=== PATIENT | male | born 2000 | race Caucasian/White ===

== ENCOUNTER 2020-11-02 11:24 | Outpatient (CLI) | payer SELFPAY ==
[2020-11-02 12:14] LABS: SARS-CoV-2 Ag Negative (Negative)
[2020-11-02 22:05] LABS: SARS-CoV-2 RNA PCR Negative
== END 2020-11-02 11:25 | disposition home or self-care (01) ==
LOC: CHSLAB 11:28
PROVIDERS: PCP Family Medicine; Visit Provider Family Medicine
DX: R53.81 Other malaise (principal); Z20.822 Contact with and (suspected) exposure to COVID-19
CPT/HCPCS: 87426; C9803; U0003; U0005

== ENCOUNTER 2020-11-05 10:43 | Outpatient (CLI) | payer SELFPAY ==
--- NOTE | ~2020-11-05 | XR_ITS ---
EXAMINATION: XR chest 2V DATE: 11/05/2020 11:12 INDICATION: Chest pain. Shortness of breath. Abdominal pain. TECHNIQUE: Frontal and lateral views of the chest were obtained. COMPARISON: Chest 2 views 12/04/2013, CT abdomen and pelvis 11/11/2018 FINDINGS: The chest demonstrates clear lungs without pneumonia, pleural effusion, or pneumothorax. Th e heart size is normal. IMPRESSION: 1. No acute cardiopulmonary disease. Reviewed, dictated and finalized at location A. HOUSE WORKER
--- NOTE | ~2020-11-05 | XR_ITS ---
EXAMINATION: XR abdomen obstructive series EXAM DATE: 11/05/2020 11:12 INDICATION: Abdominal pain, chest pain and shortness of breath 1.5 weeks. TECHNIQUE: Frontal upright projection of the upper abdomen, frontal projection of the lower abdomen f or interpretation. There is no prior study for comparison. FINDINGS: There is moderate amount of colonic stool and gas. No small bowel dilation, nonobstructiv e bowel gas pattern. There are no suspicious calcifications identified. There is no organomegaly suspected. The bones are unremarkable. There is no free intraperitoneal air. The lung bases are clear. IMPRESSION: Moderate amount of colonic stool. Reviewed, dictated and finalized at location A. T WORKER
[2020-11-05 10:57] LABS: Add Urine Microscopic? NO; Appearance Urine Clear (Clear); Basophils Absolute Auto 0.04 K/mm3 (0.00-0.10); Basophils Percent Auto 0.5 % (0.0-1.0); Bilirubin Urine Negative (Negative); Blood Urine Negative (Negative); Color Urine Yellow (Yellow); Eosinophils Absolute Auto 0.28 K/mm3 (0.02-0.50); Eosinophils Percent Auto 3.4 % (1.0-6.0); Glucose Urine UA Negative (Negative); Hemoglobin 15.4 g/dL (14.0-18.0); Immature Granulocyte Percent A 1.2 % (0.0-0.0); Ketones Urine Negative (Negative); Leukocyte Esterase Ur Negative (Negative); Lymphocytes Absolute Auto 3.13 K/mm3 (1.10-4.50); Lymphocytes Percent Auto 37.7 % (18.0-42.0); Mean Corpuscular HGB Conc 32.8 g/dL (32.0-36.0); Mean Corpuscular Hemoglobin 28.1 pg (27.0-31.0); Mean Corpuscular Volume 85.6 fL (78.0-102.0); Mean Platelet Volume 9.6 fl (8.7-11.0); Monocytes Absolute Auto 0.49 K/mm3 (0.10-0.90); Monocytes Percent Auto 5.9 % (2.0-11.0); Neutrophils Absolute Auto 4.3 K/mm3 (1.7-7.2); Neutrophils Percent Auto 51.3 % (50.0-70.0); Nitrate Urine Negative (Negative); Platelet Count Result 288 K/mm3 (150-420); Protein Urine Negative (Negative); Red Blood Count 5.49 M/mm3 (4.70-6.10); Red Cell Distribution Width 11.9 % (11.6-14.4); Specific Grav Ur >= 1.030 (1.010-1.020); Urobilinogen Urine 0.2 mg/dL (0.2-1.0); White Blood Count 8.3 K/mm3 (4.8-10.8)
[2020-11-05 12:25] LABS: Alanine Aminotransferase 20 U/L (16-63); Albumin Level 4.9 g/dL (3.4-5.0); Alkaline Phosphatase 81 U/L (46-116); Amylase 86 U/L (25-115); Anion Gap 10 mmol/L (8-16); Aspartate Amino Transferase 10 U/L (15-37); Bilirubin,Total 0.6 mg/dL (0.00-1.00); Blood Urea Nitrogen 20 mg/dL (7-18); Calcium 9.8 mg/dL (8.5-10.1); Carbon Dioxide 29 mmol/L (21-32); Chloride 102 mmol/L (98-108); Estimated Glomerular Filt Rate > 60; Glucose 92 mg/dL (70-99); Lipase 97 U/L (73-393); Osmolality Calculated 294 mOsm/kg (285-295); Potassium 4.5 mmol/L (3.5-5.1); Sodium 141 mmol/L (136-145); Total Protein 7.7 g/dL (6.4-8.2)
== END 2020-11-05 10:44 | disposition home or self-care (01) ==
PROVIDERS: PCP Family Medicine; Visit Provider Family Medicine
DX: R10.9 Unspecified abdominal pain (principal); R06.02 Shortness of breath
CPT/HCPCS: 36415; 71046; 74019; 80053; 81003; 82150; 83690; 85025

== ENCOUNTER 2021-04-02 21:57 | Emergency (ER) | payer OTHER, SELFPAY ==
[2021-04-02 22:00] VITALS: BP 127/91; PULSE 63; RESP 16; TEMP 37.2; O2SAT 100
--- NOTE | 2021-04-02 22:01 | ED.EYEPROB ---
HPI - Eye Problem General Chief complaint: Eye Problems Stated complaint: trouble seeing in L eye Source: patient and RN notes reviewed Mode of arrival: ambulatory Limitations: no limitations History of Present Illness HPI Narrative: 20-year-old male states that he was at home when he woke up from sleep has left eye had change in vision. Almost like someone dropped a piece of plastic over his eye and made at blurry. This has been going on all day without change. He denies any injury. He denies any drainage, foreign body sensation, matting, or pain. He denies any head injury. chief complaint: vision change Onset (ago): hour(s) (12) Duration: constant Location: left eye Eye Symptoms: decreased vision and blurry vision Place: home Mechanism: none Associated symptoms: none Treatments Prior to Arrival: none Related Data Patient tetanus UTD: Yes Home Medications Medication Instructions Recorded Confirmed No Home Medications 04/02/21 04/02/21 Allergies Allergy/AdvReac Type Severity Reaction Status Date / Time No Known Allergies Allergy Verified 04/02/21 22:07 Review of Systems Review of Systems: All systems reviewed & are unremarkable except as noted in HPI and below Constitutional: Constitutional: Denies chills and Denies fever(s) ENT: Reports otalgia (left) Neurologic: Denies confusion, Denies dizziness, Denies headache(s) and Denies weakness PMFSH Past Medical History Medical History (Updated 04/02/21 @ 23:07 by Walker Ledezma MD) No active medical problems Surgical History Surgical History (Updated 04/02/21 @ 22:09 by Walker Ledezma MD) No pertinent past surgical history Social History Social History (Updated 04/02/21 @ 22:10 by Walker Ledezma MD) Smoking status: Current every day smoker Tobacco type: e-cigarettes/vaping Alcohol intake: current Substance use: never Exam Const: General: healthy appearing and no acute distress Nutritional Appearance: well nourished and thin Orientation/consciousness: patient oriented x3 HENMT: Head: normal to inspection Ears: external ears normal Face and sinus: normal facial exam Mouth: Yes moist mucous membranes Eyes: Direct Ophthalmoscopy: normal light reflex, no papilledema, No fundi normal bilaterally, No macular abnormality, No optic disc abnormality and No retinal abnormality ( No obvious abnormality could be appreciated.) Neck: Neck: normal visual inspection Resp: Effort & Inspection: normal respiratory effort Auscultation: clear to auscultation bilaterally Cardio: Rate: regular rate Rhythm: regular rhythm GI: Auscultation: normal bowel sounds Back/Spine/Pelvis: Cervical Spine: cervical ROM normal Thoracic/Lumbar Spine: thoraco-lumbar ROM normal Skin: General skin exam: normal color Rashes: no rashes Neuro: General: patient oriented x3, moves all extremities, no meningeal signs and no focal motor deficits Speech: normal speech Gait exam (Neuro): Normal gait present Extrem: General: normal to inspection and no clubbing, cyanosis or edema Psych: Appearance: grossly normal and well kempt Mental Status: mental status grossly normal Affect: normal affect Attitude: cooperative Thought content: Yes Normal thought content present Course Course Emergency Course: I discussed him going to [facility] for further evaluation in the emergency room tonight for ophthalmology examination and treatment of his visual changes in his left eye. They declined to go this evening. They said they would possibly go to more. They opted to be discharged home. Procedures Other Procedure Procedure 1: Other Procedure: Left eye, 2 drops of atropine 1% ophthalmic placed in left eye for dilation. Ophthalmoscope examination did not reveal any significant abnormalities but does not rule out serious diagnosis such as detached retina. Discharge Plan Discharge Clinical Impression: Vision changes Patient Dispositio
[2021-04-02 23:14] VITALS: BP 117/85; PULSE 58; RESP 15; O2SAT 100
== END 2021-04-02 23:13 | disposition left against medical advice (07) ==
PROVIDERS: Emergency Provider Emergency Medicine; PCP Family Medicine
DX: H53.9 Unspecified visual disturbance (principal)
CPT/HCPCS: 99282; A9270

== ENCOUNTER 2021-04-14 09:33 | Outpatient (CLI) | payer OTHER, SELFPAY ==
--- NOTE | ~2021-04-14 | MR_ITS ---
EXAMINATION: MR brain/brain stem wo/w con DATE: 04/14/2021 11:58 INDICATION: Left sided vision and hearing loss. TECHNIQUE: Magnetic resonance imaging (MRI) of the brain and brainstem was performed without and with 12 mL MultiHance intravenous contrast. Sequences included sagittal and axial T1-weighted FSE, axial diffusion-weighted FS EPI, axial T2*-weighted GRE, axial T2-weighted FLAIR Propeller, and axial T2-we ighted Propeller. Postcontrast sequences included axial and coronal T1-weighted FSE. Apparent diffusi on coefficient (ADC) maps were created. COMPARISON: None. FINDINGS: There is no intracranial hemorrhage, acute infarction, or abnormal intracranial mass lesion . The ventricles are normal in size. The paranasal sinuses are clear. The orbits are normal. The mast oid air cells are normal. IMPRESSION: 1. Normal brain. Reviewed, dictated and finalized at location A. IMPRESSION: 1. Normal brain.
== END 2021-04-14 09:34 | disposition home or self-care (01) ==
LOC: CHSIMG 09:34
PROVIDERS: PCP Family Medicine; Visit Provider Family Medicine
DX: H53.8 Other visual disturbances (principal)
CPT/HCPCS: 70553; A9577

== ENCOUNTER 2021-05-28 09:49 | Outpatient (CLI) | payer OTHER, SELFPAY ==
[2021-05-28 11:16] LABS: SARS-CoV-2 RNA PCR Negative (Negative)
== END 2021-05-28 09:50 | disposition home or self-care (01) ==
LOC: CHSLAB 09:51
PROVIDERS: PCP Family Medicine; Visit Provider Family Medicine
DX: J00 Acute nasopharyngitis [common cold] (principal); Z20.822 Contact with and (suspected) exposure to COVID-19
CPT/HCPCS: C9803; U0003; U0005

== ENCOUNTER 2021-06-21 16:26 | Outpatient (CLI) | payer OTHER, SELFPAY ==
[2021-06-21 17:34] LABS: SARS-CoV-2 RNA PCR Positive (Negative)
== END 2021-06-21 16:27 | disposition home or self-care (01) ==
LOC: CHSLAB 16:27
PROVIDERS: PCP Family Medicine; Visit Provider Family Medicine
DX: U07.1 COVID-19 (principal)
CPT/HCPCS: 87081; 87880; C9803; U0003; U0005

== ENCOUNTER 2021-06-30 12:44 | Outpatient (CLI) | payer OTHER, SELFPAY ==
[2021-06-30 14:08] LABS: SARS-CoV-2 RNA PCR Positive (Negative)
== END 2021-06-30 12:45 | disposition home or self-care (01) ==
LOC: CHSLAB 12:45
PROVIDERS: PCP Family Medicine; Visit Provider Family Medicine
DX: U07.1 COVID-19 (principal)
CPT/HCPCS: C9803; U0003; U0005

== ENCOUNTER 2022-11-02 12:01 | Outpatient (CLI) | payer OTHER, SELFPAY ==
[2022-11-02 12:45] LABS: Strep Group A RT-PCR NOT DETECTED (Negative)
[2022-11-02 12:52] LABS: Influenza A QL RT-PCR Negative (Negative); Influenza B QL RT-PCR Negative (Negative); SARS-CoV-2 RNA PCR Negative (Negative)
== END 2022-11-02 12:02 | disposition home or self-care (01) ==
LOC: CHSLAB 12:04
PROVIDERS: PCP Family Medicine; Visit Provider Family Medicine
DX: J02.9 Acute pharyngitis, unspecified (principal); Z20.822 Contact with and (suspected) exposure to COVID-19
CPT/HCPCS: 87636; 87651

== ENCOUNTER 2023-02-23 16:16 | Outpatient (CLI) | payer BC, SELFPAY ==
--- NOTE | ~2023-02-23 | XR_ITS ---
EXAMINATION: XR chest 2V 02/23/2023 16:38 INDICATION: Acute cough PROCEDURE: 2 view chest COMPARISON: 11/05/2020 and 12/04/2013 FINDINGS: The lungs are clear. The cardiomediastinal silhouette is within normal limits. There are no pleural effusions. There is no pneumothorax suspected. IMPRESSION: 1: NO ACUTE CARDIOPULMONARY DISEASE. Reviewed, dictated and finalized at location B.
== END 2023-02-23 16:17 | disposition home or self-care (01) ==
LOC: CHSIMG 16:20
PROVIDERS: PCP Family Medicine; Visit Provider Family Medicine
DX: R05.1 Acute cough (principal)
CPT/HCPCS: 71046